=== PATIENT | female | born 1975 | race Caucasian/White ===

== ENCOUNTER 2016-05-23 11:19 | Emergency (ER) | payer SELFPAY ==
[~2016-05-23] VITALS: Ht 180.3 cm; Wt 99.5 kg
[~2016-05-23 11:19] MED LIST: HYDR-4246 PO; NAPR220T61 PO; PENI500T2 PO; VENL150T7 PO
[2016-05-23 11:24] VITALS: Ht 180.3 cm; Wt 99.5 kg
--- OUTSIDE RECORDS SUMMARY | 2016-05-23 11:26 | XMS REPORT | Continuity of Care Document ---
Author Author [facility] Organization [facility] Address Unknown Phone Unavailable Allergies Active Description Code Type Severity Reaction Onset Reported/Identified Relationship to Patient Clinical Status Yes No Known Drug Allergies No Known Drug Allergies Drug Allergy Unknown N/A 10/06/2009 Yes acetaminophen acetaminophen Drug Allergy Unknown HEP C 12/14/2013 Yes ibuprofen ibuprofen Drug Allergy Unknown HEP C 12/14/2013 Yes ketorolac ketorolac Drug Allergy Unknown MAKES ME SICK 12/14/2013 Medications Problems Procedures Results Test Result Range URINALYSIS, ROUTINE - 12/14/13 14:45 UA LEUKOCYTE ESTERASE DIPSTICK NEGATIVE NEGATIVE UA NITRITE DIPSTICK NEGATIVE NEGATIVE UA PROTEIN DIPSTICK NEGATIVE NEGATIVE UA GLUCOSE DIPSTICK NEGATIVE NEGATIVE UA KETONE DIPSTICK NEGATIVE NEGATIVE UA UROBILINOGEN DIPSTICK NORMAL NORMAL UA BILIRUBIN DIPSTICK NEGATIVE NEGATIVE UA BLOOD DIPSTICK NEGATIVE NEGATIVE UA COMMENT UA SPECIFIC GRAVITY 1.005 1.015-1.025 UR PH 7.0 5.0-7.0 UR TEST - 12/14/13 14:45 UR TEST NEGATIVE NEGATIVE Encounters ACCT No. Visit Date/Time Discharge Status Pt. Type Provider Facility Loc./Unit Complaint [id number] 12/14/2013 12:58:00 2013 15:35:00 DIS Emergency [facility], [place] [facility] W.EDS
--- OUTSIDE RECORDS SUMMARY | 2016-05-23 11:26 | XMS REPORT | Continuity of Care Document ---
Author Author [facility] Organization [facility] Address Unknown Phone Unavailable Care Team Providers Care Engineering Faculty Member Name Role Phone SO PUENTE MD Primary Care Physician [phone] Insurance Providers Guarantor JosueeldaCatherine Corby Address [address] [place] [address] Email DENIED NO TO PT PORT Payer [facility] Policy Number [id number] Subscriber's Name Catherine Bahena Relationship 18 Self Effective Date 14 Expiration Date 14 Advance Directives Directive Response Recorded Date/Time Advanced Directives Type None 05/05/16 3:47pm Chief Complaint and Reason for Visit Chief Complaint Toothache Reason for Visit [id number] Problems Active Problems Medical Problem Onset Date Status Acute pyelonephritis Unknown Acute Acute pyelonephritis Unknown Acute Dental abscess Unknown Acute Facial laceration Unknown Acute Minor head injury without loss of consciousness Unknown Acute Minor head injury without loss of consciousness Unknown Acute Pain, dental Unknown Acute Past Problems Medical Problem Onset Date Pain, dental Unknown Medications Current Home Medications Medication Dose Units Route Directions Days Qty Instructions Start Date Hydrocodone/Acetaminophen ([place] 5-325 Tablet) 5-325 Tablet 1 Tab Oral Every 4 Hours as needed for Pain 3 Days 18 Tablet 05/05/16 Naproxen Sodium (Aleve) 220 Mg Tablet 440 Mg Oral Twice Daily With Meals as needed for Pain 05/05/16 Penicillin V Potassium 500 Mg Tablet 1 Tab Oral Four Times Daily 10 Days 40 Tablet 05/05/16 Venlafaxine Hcl (Venlafaxine Hcl Er) 150 Mg Tab.er.24 300 Mg Oral Daily 05/05/16 Past Home Medications Medication Directions Ordered Status Acetaminophen (Tylenol) 500 Mg Tablet, 500 Mg Oral As Needed 04/26/11 Discontinued Acetaminophen/Dp-Hydram Hcl (Tylenol P.m. Ex-Str Caplet) 1 Tab Tablet, 4 Tab Oral Bedtime 04/26/11 Discontinued Alprazolam 1 Mg Tablet, 1 Mg Oral As Needed 09/21/10 Discontinued Amitriptyline Hcl 25 Mg Tablet, 25 Mg Oral Daily 05/04/08 Discontinued Carisoprodol (Soma) 350 Mg Tablet, 350 Mg Oral Three Times A Day 09/21/10 Discontinued Escitalopram Oxalate (Lexapro) 20 Mg Tablet, 10 Mg Oral Daily 09/21/10 Discontinued Escitalopram Oxalate (Lexapro) 20 Mg Tablet, Daily 11/19/09 Discontinued Escitalopram Oxalate (Lexapro) 20 Mg Tablet, 1 Tab Oral Daily 01/07/09 Discontinued Escitalopram Oxalate (Lexapro) 10 Mg Tablet, 05/04/08 Discontinued Ferrous Sulfate (Iron) 325 ( Capsule.sa, 325 ( Oral Twice A Day 05/04/08 Discontinued Gabapentin 600 Mg Tablet, 600 Mg Oral Four Times Daily 05/04/08 Discontinued Hydrocodone Bit/Acetaminophen (Hydrocodone-Apap 10-500 Tab) 1 Tab Tablet, 0.5 - 1 Tab Oral As Needed 09/21/10 Discontinued Hydrocodone Bit/Acetaminophen (Lortab 7.5) 1 Udtab Tablet, 1 Udtab Oral As Needed 05/04/08 Discontinued None , 10/28/09 Discontinued Vitamin , 1 Oral Daily 05/04/08 Discontinued Tramadol Hcl (Ultram) 50 Mg Tablet, 50 Mg Oral As Needed 05/04/08 Discontinued Zolpidem Tartrate (Ambien) 10 Mg Tablet, 10 Mg Oral Bedtime 09/24/10 Discontinued Zolpidem Tartrate (Ambien Neo) 10 Mg Tablet, 10 Mg Oral Bedtime 05/04/08 Discontinued Social History Social History Problem Response Recorded Date/Time Onset Date Status Hx Substance Use No 05/05/2016 3:47pm Not Applicable Not Applicable Hx Alcohol Use No 05/05/2016 3:47pm Not Applicable Not Applicable Tobacco Usage none 12/11/2013 12:01pm Not Applicable Not Applicable Query Response Start Date Stop Date Smoking Status Current every day smoker Hospital Discharge Instructions No hospital discharge instructions. Plan of Care Discharge Date 05/05/16 4:37pm Disposition 01 DISCHARGED HOME, SELF-CARE Condition at Discharge Improved Instructions/Education Provided ED Dental Follow-up Dental Caries (ED) Toothache (ED) Prescriptions See Medication Section Referrals SO PUENTE MD Order Date: 2 Days Address: [address] [id number] Note: Care Plan and Goals Physician Care Plan Problem: Dental Pain Goal: Follow up with primary care provider Instructions: Take medications and follow care plan as discussed/written Functional Status No functional status results. Allergies, Adverse Reactions, Alerts Allergen Type Severity Reaction Status Last Updated Codeine Adverse Reaction Unknown NAUSEA/VOMITING Active 05/05/16 Ketorolac Adverse Reaction Unknown SICK TO STOMACH Active 05/05/16 Immunizations Query Response on File Recorded Date/Time Hx Influenza Vaccination No 06/27/14 11:23pm Hx Pneumococcal Vaccination No 06/27/14 11:23pm Hx Tetanus, Diptheria, Pertussis N UNKNOWN 06/27/14 11:23pm Hx Influenza Vaccination No 06/27/14 11:23pm Hx Tetanus, Diptheria, Pertussis N UNKNOWN 06/27/14 11:23pm Influenza Vaccine Hx 12/201505/05/16 3:47pm Vital Signs Acute Vital Signs Vital Response Date/Time Temperature (Fahrenheit) 97.9 deg F (96.8 - 99.1) 05/05/2016 4:35pm Temperature (Calculated Celsius) 36.85200 degrees C (36.0 - 37.3) 05/05/2016 4:35pm Pulse Rate (adult) 90 bpm (60 - 100) 05/05/2016 4:35pm Respiratory Rate 16 breaths/min (10 - 20) 05/05/2016 4:35pm O2 Sat by Pulse Oximetry 99 % (90 - 100) 05/05/2016 4:35pm Blood Pressure 130/74 mm Hg 05/05/2016 4:35pm Height (Feet) 5 feet 05/05/2016 3:47pm Height (Inches) 10.00 inches 05/05/2016 3:47pm Weight (Kilograms) 101.700 kg 05/05/2016 3:47pm Body Mass Index (BMI) 32.0 05/05/2016 3:47pm Results No known relevant diagnostic tests, laboratory data and/or discharge summary. Procedures No known history of procedures. Encounters Encounter Location Arrival/Admit Date Discharge/Depart Date Attending Provider Departed Emergency Room [facility] 05/05/16 3:40pm 05/05/16 4: 37pm SONIDO MCKEON DO Recent Diagnosis
--- OUTSIDE RECORDS SUMMARY | 2016-05-23 11:26 | XMS REPORT | Continuity of Care Document ---
Author Author [facility] Organization [facility] Address Unknown Phone Unavailable Care Team Providers Care Customer Quality Specialist Name Role Phone SO PUENTE MD Primary Care Physician [phone] Insurance Providers Payer Name Policy Number Subscriber Name Relationship [facility] [employer] [facility] [id number] Catherine Bahena 18 Self Problems Medical Problems Problem Onset Date Status Pain, dental Unknown Active Acute pyelonephritis Unknown Active Acute pyelonephritis Unknown Active Minor head injury without loss of consciousness Unknown Active Facial laceration Unknown Active Minor head injury without loss of consciousness Unknown Active Medications Medication Dose Route Sig Days/Qty Instructions Order Date Discontinued Date Status Escitalopram Oxalate 05/04/08 01/07/09 Discontinued Zolpidem Tartrate 10 Mg PO BEDTIME 05/04/08 01/07/09 Discontinued Amitriptyline Hcl 25 Mg PO DAILY 05/04/08 01/07/09 Discontinued Ferrous Sulfate 325 ( PO TWICE A DAY 05/04/08 07/31/08 Discontinued Hydrocodone Bit/Acetaminophen 1 Udtab PO NEEDED 05/04/08 Discontinued [ Vitamin] 1 PO DAILY 05/04/08 07/31/08 Discontinued Tramadol Hcl 50 Mg PO NEEDED 05/04/08 07/31/08 Discontinued Gabapentin 600 Mg PO FOUR TIMES DAILY 05/04/08 07/31/08 Discontinued Escitalopram Oxalate 1 Tab PO DAILY 01/07/09 08/08/09 Discontinued [None] 10/28/09 08/06/10 Discontinued Escitalopram Oxalate DAILY 11/19/09 08/06/10 Discontinued Carisoprodol 350 Mg PO THREE TIMES A DAY 09/21/10 04/26/11 Discontinued Hydrocodone Bit/Acetaminophen 0.5 - 1 Tab PO NEEDED 09/21/1003/06 Discontinued Escitalopram Oxalate 10 Mg PO DAILY 09/21/10 04/26/11 Discontinued Alprazolam 1 Mg PO NEEDED 09/21/10 04/26/11 Discontinued Zolpidem Tartrate 10 Mg PO BEDTIME 09/24/10 04/26/11 Discontinued Acetaminophen 500 Mg PO NEEDED 04/26/11 05/09/11 Discontinued Acetaminophen/Dp-Hydram Hcl 4 Tab PO BEDTIME 04/26/11 05/09/11 Discontinued Desvenlafaxine Succinate Mg DAILY 11/11/13 Active Social History Social History Problem Response Recorded Date/Time Hx Substance Use No 04/14/2014 10:45pm Hx Alcohol Use No 04/14/2014 10:45pm Tobacco Usage none 12/11/2013 12:01pm Query Response Start Date Stop Date Smoking Status Current every day smoker Hospital Discharge Instructions No hospital discharge instructions. Plan of Care No plan of care. Functional Status Query Response Date Recorded Physical Hygiene Self April 14, 2014 10:45pm Disabilities None April 14, 2014 10:45pm Devices Used None April 14, 2014 10:45pm Dressing Self April 14, 2014 10:45pm Ambulation Self April 14, 2014 10:45pm Diet Self April 14, 2014 10:45pm Mental Status Alert Oriented April 15, 2014 1:02am Disabilities None April 14, 2014 10:45pm Devices Used None April 14, 2014 10:45pm Physical Hygiene Self April 14, 2014 10:45pm Dressing Self April 14, 2014 10:45pm Ambulation Self April 14, 2014 10:45pm Diet Self April 14, 2014 10:45pm Allergies, Adverse Reactions, Alerts Allergen Type Severity Reaction Status Last Updated TYLENOL #3 Adverse Reaction Unknown VOMITING Active 10/28/09 Immunizations Name Given Type Hx Influenza Vaccination No Historical Hx Pneumococcal Vaccination No Historical Hx Tetanus, Diptheria, Pertussis N UNKNOWN Historical Hx Influenza Vaccination No Historical Hx Tetanus, Diptheria, Pertussis N UNKNOWN Historical Vital Signs Acute Vital Signs Vital Response Date/Time Pulse Rate (adult) 80 bpm (60 - 100) Respiratory Rate 20 breaths/min (10 - 20) O2 Sat by Pulse Oximetry 99 % (90 - 100) Blood Pressure 127/80 mm Hg Height 5 ft 10 in Weight 161 lb Body Mass Index 23.0 kg/m^2 Results Test Source Date Result Interp. Ref. Range Comments Acetaminophen Level April 26, 2011 11:50pm 43 UG/ML H 10-30 TOXIC <4 HR POST INGESTION: >150 MG/L;TOXIC <12 HR POST INGESTION: >50 MG/L Alanine Aminotransferase (ALT/SGPT) December 11, 2013 11:43am 30 U/L N 9- 52 Albumin December 11, 2013 11:43am 4.2 G/DL N 3.5-5.0 Albumin/Globulin Ratio December 11, 2013 11:43am 1.2 RATIO N 1.1-2.2 Alcohol, Quantitative April 26, 2011 11:50pm <10 MG/DL - Alkaline Phosphatase December 11, 2013 11:43am 65 U/L N 38-126 Amylase Level December 11, 2013 11:43am 49 U/L N 30-110 Anion Gap December 11, 2013 11:43am 11 MEQ/L N 5-15 Aspartate Amino Transf (AST/SGOT) December 11, 2013 11:43am 21 U/L N 14- 36 BUN/Creatinine Ratio December 11, 2013 11:43am 10 RATIO N 6-26 Basophils # (Auto) December 11, 2013 11:43am 0.0 T/MM3 N 0-0.2 Basophils (%) (Auto) December 11, 2013 11:43am 0.2 % N 0-2 Blood Urea Nitrogen December 11, 2013 11:43am 8.0 MG/DL N 7-17 Calcium Level December 11, 2013 11:43am 9.8 MG/DL N 8.4-10.2 Calculated Osmolality December 11, 2013 11:43am 262 MOSM/KG N 261-280 Carbon Dioxide Level December 11, 2013 11:43am 26 MEQ/L N 22-30 Chloride Level December 11, 2013 11:43am 100 MEQ/L N 98-107 Conjugated Bilirubin April 26, 2011 11:50pm 0.00 MG/DL N 0.00-0.30 Creatinine December 11, 2013 11:43am 0.8 MG/DL N 0.7-1.2 Eosinophils # (Auto) December 11, 2013 11:43am 0.0 T/MM3 N 0-0.5 Eosinophils (%) (Auto) December 11, 2013 11:43am 0.0 % N 0-4 Gamma Glutamyl Transpeptidase February 20, 2011 12:25pm 25 U/L N 8-78 Globulin December 11, 2013 11:43am 3.4 G/DL N 2.4-3.6 Glucose Level December 11, 2013 11:43am 99 MG/DL N 65-110 Group A Streptococcus Screen August 08, 2009 9:57pm Positive - Has specimen been collected/obtained? Y Hematocrit December 11, 2013 11:43am 39.8 % N 36-46 Hemoglobin December 11, 2013 11:43am 13.3 GM/DL N 12-16 Lipase December 11, 2013 11:43am 57 U/L N 23-300 Lymphocytes # (Auto) December 11, 2013 11:43am 1.3 T/MM3 N 1-4.8 Lymphocytes # (Manual) August 08, 2009 10:15am 0.8 T/MM3 L 1-4.8 Lymphocytes % (Manual) August 08, 2009 10:15am 7.0 % L 23-45 Lymphocytes (%) (Auto) December 11, 2013 11:43am 8.8 % L 23-45 Mean Corpuscular Hemoglobin December 11, 2013 11:43am 29.8 UUG N 26-34 Mean Corpuscular Hemoglobin Concent December 11, 2013 11:43am 33.4 GM/DL N 31-37 Mean Corpuscular Volume December 11, 2013 11:43am 89.2 UM3 N 80-100 Mean Platelet Volume December 11, 2013 11:43am 10.5 UM3 N 9.4-12.4 Monocytes # (Auto) December 11, 2013 11:43am 1.2 T/MM3 H 0-0.8 Monocytes # (Manual) January 08, 2009 6:36pm 0.3 T/MM3 N 0-0.8 Monocytes % (Manual) January 08, 2009 6:36pm 5.0 % N 0-9.0 Monocytes (%) (Auto) December 11, 2013 11:43am 8.1 % N 0-9.0 Monoscreen August 08, 2009 10:15am Negative - Neutrophils # (Auto) December 11, 2013 11:43am 11.9 T/MM3 H 1.8-7.7 Neutrophils # (Manual) August 08, 2009 10:15am 10.5 T/MM3 H 1.8-7.7 Neutrophils % (Manual) August 08, 2009 10:15am 93.0 % H 33-66 Neutrophils (%) (Auto) December 11, 2013 11:43am 82.6 % H 33-66 Platelet Count December 11, 2013 11:43am 192 T/MM3 N 130-400 Potassium Level December 11, 2013 11:43am 3.7 MEQ/L N 3.6-5 Prealbumin September 21, 2010 8:00pm 26.2 MG/DL N 17.6-36.0 COMMENT may run on blood in lab.COMMENT may use on blood in lab. RDW Standard Deviation December 11, 2013 11:43am 44.2 FL N 36.9-50.2 Red Blood Count December 11, 2013 11:43am 4.46 M/MM3 N 4.00-5.20 Salicylates Level April 26, 2011 11:50pm 13.1 MG/DL N 2-20 Sodium Level December 11, 2013 11:43am 137 MEQ/L N 134-144 Thyroid Stimulating Hormone (TSH) February 20, 2011 12:25pm 3.02 MIU/L DN 0.47-4.68 Total Bilirubin December 11, 2013 11:43am 0.80 MG/DL N 0.20-1.30 Total Protein December 11, 2013 11:43am 7.6 G/DL N 6.3-8.2 Unconjugated Bilirubin April 26, 2011 11:50pm 0.00 MG/DL N 0.00-1.10 Urine Amphetamines Screen April 26, 2011 11:50pm Negative NG/ML - Urine Bacteria December 11, 2013 11:40am 4+ H - Has specimen been collected/obtained? Y Urine Barbiturates Screen April 26, 2011 11:50pm Negative NG/ML - Urine Benzodiazepines Screen April 26, 2011 11:50pm Negative NG/ML - Urine Bilirubin December 11, 2013 11:40am Negative - Has specimen been collected/obtained? Y Urine Blood December 11, 2013 11:40am 1+ H - Has specimen been collected /obtained? Y Urine Cocaine Screen April 26, 2011 11:50pm Negative NG/ML - Urine Collection Type December 11, 2013 11:40am Cleancatch-midstream - Has specimen been collected/obtained? Y Urine Color December 11, 2013 11:40am Yellow - Has specimen been collected/obtained? Y Urine Culture Indicated December 11, 2013 11:40am Cult reflexed &setup - Has specimen been collected/obtained? Y Urine Drug Screen Confirmation April 27, 2011 12:10am Sent out - Urine Glucose (UA) December 11, 2013 11:40am Negative - Has specimen been collected/obtained? Y Urine Ketones December 11, 2013 11:40am Negative - Has specimen been collected/obtained? Y Urine Leukocyte Esterase December 11, 2013 11:40am 1+ H - Has specimen been collected/obtained? Y Urine Methamphetamines Screen April 26, 2011 11:50pm Negative NG/ML - Urine Nitrite December 11, 2013 11:40am Positive H - Has specimen been collected/obtained? Y Urine Opiates Screen April 26, 2011 11:50pm Positive NG/ML - Urine Phencyclidine Screen April 26, 2011 11:50pm Negative NG/ML - Urine Test September 21, 2010 8:50pm Negative - Has specimen been collected/obtained? Y Urine Protein December 11, 2013 11:40am Trace H - Has specimen been collected/obtained? Y Urine RBC December 11, 2013 11:40am 0-1 /HPF - Has specimen been collected/obtained? Y Urine Specific [place] December 11, 2013 11:40am 1.015 - Has specimen been collected/obtained? Y Urine Squamous Epithelial Cells August 08, 2009 8:45am Moderate - Has specimen been collected/obtained? Y Urine Trichomonas August 08, 2009 8:45am Present - Has specimen been collected/obtained? Y Urine Tricyclic Antidepressants April 26, 2011 11:50pm Negative NG/ML - Urine Turbidity December 11, 2013 11:40am Clear - Has specimen been collected/obtained? Y Urine Urobilinogen December 11, 2013 11:40am 2.0 EU/DL - Has specimen been collected/obtained? Y Urine WBC December 11, 2013 11:40am 5-10 /HPF H - Has specimen been collected/obtained? Y Urine pH December 11, 2013 11:40am 7.0 - Has specimen been collected/ obtained? Y White Blood Count December 11, 2013 11:43am 14.4 T/MM3 H 4.5-11.0 Chemistry Specimen Hemolysis December 11, 2013 11:43am < 15 0-25 0-25 : No Hemolysis.26-70: Slight Hemolysis - can falsely elevate K and Urine Protein. 71-285: Moderate Hemolysis - can falsely elevate K, Troponin I, CA 19-9, PTH, CSF GLucose, and Urine Protein, and can falsely decrease Phenytoin. 286-999: Gross Hemolysis - can falsely elevate K, Troponin I, CA 19-9, PTH, CSF Glucose, and Urine Protine, and can falsely decrease Phenytoin. Recommend specimen recollection. Glucometer May 04, 2008 10:08pm 92 mg/dL - Lab Scanned Report May 02, 2011 10:33am [facility] [id number] - Urine Methadone Screen April 26, 2011 11:50pm Negative NG/ML - Urine Cannabinoids Screen April 26, 2011 11:50pm Positive NG/ML - Turbidity December 11, 2013 11:43am < 20 0-20 Glomerular Filtration Rate Calc December 11, 2013 11:43am 81 - Immature Granulocyte # (Auto) December 11, 2013 11:43am 0.04 T/MM3 H 0.00 -0.03 Immature Granulocyte % (Auto) December 11, 2013 11:43am 0.3 % N 0.0-0.5 Venous Blood Lactate December 11, 2013 12:14pm 1.0 MMOL/L N 0.6-2.2 Procalcitonin December 11, 2013 12:14pm 0.31 NG/ML - PCT </=0.5 ng/mL - sepsis not likely;PCT >0.5 and </=2 ng/mL - sepsis possible; PCT >2 ng/mL - sepsis likely; PCT >/=10 ng/mL - systemic inflammatory response - sepsis or septic shock highly indicated. Icterus Index December 11, 2013 11:43am < 2 0-7 Urine Acetaminophen Screen April 26, 2011 11:50pm Positive NG/ML - Urine Microscopic Not Indicated April 26, 2011 11:50pm Not indicated - Has specimen been collected/obtained? Y Blood Culture Blood December 11, 2013 12:15pm NO GROWTH AFTER 5 DAYS Urine Culture Urine, Clean Catch-Midstream December 11, 2013 12:34pm Escherichia Coli Procedures No known history of procedures. Encounters Encounter Location Date/Time Departed Emergency Room [facility] 04/14/14 9:59pm Recent Diagnosis
--- OUTSIDE RECORDS SUMMARY | 2016-05-23 11:28 | XMS REPORT | Continuity of Care Document ---
Author Author Stanislav [facility] Organization [facility] Address Unknown Phone Unavailable Care Team Providers Care Whey Department Operator Name Role Phone SO PUENTE MD Primary Care Physician [phone] Insurance Providers Payer Name Policy Number Subscriber Name Relationship [facility] [place] [employer] [facility] [id number] Catherine Bahena 19 Self Advance Directives Directive Response Recorded Date/Time Advanced Directives Type None 12/11/13 10:40am Problems Medical Problems Problem Onset Date Status Pain, dental Unknown Active Acute pyelonephritis Unknown Active Medications Medication Dose Route Sig [...] Discontinued Desvenlafaxine Succinate Mg DAILY 11/11/13 Active Ciprofloxacin HCl 500 Mg PO TWICE A DAY 14 Qty 12/11/13 Active Hydrocodone/Acetaminophen 1-2 Tab PO Q6H/0300,0900,1500,2100 PRN pyelonephritis 20 Qty 12/11/13 Active Social History Social History Problem Response Recorded Date/Time Smoking Status Current every day smoker 12/11/2013 10:46am When did patient START smoking? AGE 16 12/11/2013 10:46am Hx Substance Use No 12/11/2013 10:46am Hx Alcohol Use No 12/11/2013 10:46am Query Response Start Date Stop Date Smoking Status Current every day smoker Hospital Discharge Instructions No hospital discharge instructions. Plan of Care No plan of care. Functional Status Query Response Date Recorded Physical Hygiene Self December 11, 2013 10:46am Disabilities None December 11, 2013 10:46am Devices Used None December 11, 2013 10:46am Dressing Self December 11, 2013 10:46am Ambulation Self December 11, 2013 10:46am Diet Self December 11, 2013 10:46am Mental Status Alert Oriented December 11, 2013 10:46am Disabilities None December 11, 2013 10:46am Devices Used None December 11, 2013 10:46am Physical Hygiene Self December 11, 2013 10:46am Dressing Self December 11, 2013 10:46am Ambulation Self December 11, 2013 10:46am Diet Self December 11, 2013 10:46am Allergies, Adverse Reactions, Alerts Allergen Type Severity Reaction Status Last Updated Ketorolac Allergy Mild MAKES HER ILL Active 12/11/13 TYLENOL #3 Adverse Reaction Unknown VOMITING Active 10/28/09 Immunizations Name Given Type Hx Influenza Vaccination No Historical Hx Pneumococcal Vaccination No Historical Hx Tetanus, Diptheria, Pertussis N UNKNOWN Historical Hx Influenza Vaccination No Historical Hx Tetanus, Diptheria, Pertussis N UNKNOWN Historical Vital Signs Acute Vital Signs Vital Response Date/Time Temperature (Fahrenheit) 102.3 deg F (96.8 - 99.1) Temperature (Calculated Celsius) 39.22159 degrees C (36.0 - 37.3) Pulse Rate (adult) 93 bpm (60 - 100) Respiratory Rate 20 breaths/min (10 - 20) O2 Sat by Pulse Oximetry 100 % (90 - 100) Blood Pressure 128/87 mm Hg Height 5 ft 11 in Weight 149 lb Body Mass Index 20.0 kg/m^2 Results Test Source Date Result Interp. Ref. Range Comments Procalcitonin December 11, 2013 12:14pm 0.31 NG/ML - PCT </=0.5 ng/mL - sepsis not likely;PCT >0.5 and </=2 ng/mL - sepsis possible; PCT >2 ng/mL - sepsis likely; PCT >/=10 ng/mL - systemic inflammatory response - sepsis or septic shock highly indicated. Venous Blood Lactate December 11, 2013 12:14pm 1.0 MMOL/L N 0.6-2.2 Acetaminophen Level April 26, 2011 11:50pm 43 [...] 11, 2013 11:43am 26 MEQ/L N 22-30 Chemistry Specimen Hemolysis December 11, 2013 11:43am [...] can falsely decrease Phenytoin. Recommend specimen recollection. Chloride Level December 11, 2013 11:43am 100 [...] 11, 2013 11:43am 3.4 G/DL N 2.4-3.6 Glomerular Filtration Rate Calc December 11, 2013 11:43am 81 - Glucometer May 04, 2008 10:08pm 92 mg/dL - Glucose Level December 11, 2013 11:43am 99 MG/DL N 65-110 Group A Streptococcus Screen August 08, 2009 9:57pm Positive - Has specimen been collected/obtained? Y Hematocrit December 11, 2013 11:43am 39.8 % N 36-46 Hemoglobin December 11, 2013 11:43am 13.3 GM/DL N 12-16 Icterus Index December 11, 2013 11:43am < 2 0-7 Immature Granulocyte # (Auto) December 11, 2013 11:43am 0.04 T/MM3 H 0.00 -0.03 Immature Granulocyte % (Auto) December 11, 2013 11:43am 0.3 % N 0.0-0.5 Lab Scanned Report May 02, 2011 10:33am [facility]FER[facility] [id number] - Lipase December 11, 2013 11:43am 57 U/L [...] 11, 2013 11:43am 7.6 G/DL N 6.3-8.2 Turbidity December 11, 2013 11:43am < 20 0-20 Unconjugated Bilirubin April 26, 2011 11:50pm 0.00 MG/DL N 0.00-1.10 Urine Acetaminophen Screen April 26, 2011 11:50pm Positive NG/ML - Urine Amphetamines Screen April 26, 2011 11:50pm [...] Has specimen been collected /obtained? Y Urine Cannabinoids Screen April 26, 2011 11:50pm Positive NG/ML - Urine Cocaine Screen April 26, 2011 11:50pm [...] - Has specimen been collected/obtained? Y Urine Methadone Screen April 26, 2011 11:50pm Negative NG/ML - Urine Methamphetamines Screen April 26, 2011 11:50pm Negative NG/ML - Urine Microscopic Not Indicated April 26, 2011 11:50pm Not indicated - Has specimen been collected/obtained? Y Urine Nitrite December 11, 2013 11:40am Positive [...] Has specimen been collected/obtained? Y Urine Specific [place] December 11, 2013 11:40am 1.015 - Has [...] 11, 2013 11:43am 14.4 T/MM3 H 4.5-11.0 Procedures Procedure Status Date Provider(s) N BLOCK INJ TRIGEMINAL completed 11/11/13 NATALIE WALTERS MD Encounters Encounter Location Date/Time Registered Emergency Room [facility] 12/11/13 9:52am Departed Emergency Room [facility] 11/11/13 8:23pm Recent Diagnosis
--- OUTSIDE RECORDS SUMMARY | 2016-05-23 11:28 | XMS REPORT | Continuity of Care Document ---
Author Author [facility] Organization [facility] Address Unknown Phone Unavailable Care Team Providers Care Steam Blocker Name Role Phone SO PUENTE MD Primary Care Physician [phone] Insurance Providers Payer Name Policy Number Subscriber Name Relationship [facility] [employer] [facility] [id number] Catherine Bahena 19 Self Advance Directives Directive Response Recorded Date/Time Advanced Directives Type None 11/11/13 8:40pm Problems Medical Problems Problem Onset Date Status Pain, dental Unknown Active Medications Medication Dose Route Sig [...] Discontinued Desvenlafaxine Succinate Mg DAILY 11/11/13 Active Amox Tr/Potassium Clavulanate Mg TWICE A DAY 11/11/13 Active Hydrocodone/Ibuprofen 1-2 Mg EVERY SIX HOURS 11/11/13 Active Social History Social History Problem Response Recorded Date/Time Smoking Status Current every day smoker 11/11/2013 8:40pm When did patient START smoking? AGE 16 11/11/2013 8:40pm Chewing Tobacco Status No 11/11/2013 8:40pm Hx Substance Use No 11/11/2013 8:40pm Hx Alcohol Use No 11/11/2013 8:40pm Query Response Start Date Stop Date Smoking Status Current every day smoker Hospital Discharge Instructions No hospital discharge instructions. Plan of Care No plan of care. Functional Status Query Response Date Recorded Physical Hygiene Self November 11, 2013 8:40pm Disabilities None November 11, 2013 8:40pm Devices Used None November 11, 2013 8:40pm Dressing Self November 11, 2013 8:40pm Ambulation Self November 11, 2013 8:40pm Diet Self November 11, 2013 8:40pm Mental Status Alert November 11, 2013 8:40pm Disabilities None November 11, 2013 8:40pm Devices Used None November 11, 2013 8:40pm Physical Hygiene Self November 11, 2013 8:40pm Dressing Self November 11, 2013 8:40pm Ambulation Self November 11, 2013 8:40pm Diet Self November 11, 2013 8:40pm Allergies, Adverse Reactions, Alerts Allergen Type Severity Reaction Status Last Updated Ketorolac Allergy Mild MAKES HER ILL Active 11/11/13 TYLENOL #3 Adverse Reaction Unknown VOMITING Active 10/28/09 Immunizations Name Given Type Hx Influenza Vaccination No Historical Hx Pneumococcal Vaccination No Historical Hx Tetanus, Diptheria, Pertussis N UNKNOWN Historical Hx Influenza Vaccination No Historical Hx Tetanus, Diptheria, Pertussis N UNKNOWN Historical Vital Signs Acute Vital Signs Vital Response Date/Time Temperature (Fahrenheit) 97.4 deg F (96.8 - 99.1) Temperature (Calculated Celsius) 36.93196 degrees C (36.0 - 37.3) Pulse Rate (adult) 80 bpm (60 - 100) Respiratory Rate 20 breaths/min (10 - 20) O2 Sat by Pulse Oximetry 99 % (90 - 100) Height 5 ft 9 in Weight 154 lb Body Mass Index 22.0 kg/m^2 Results Test Source Date Result Interp. Ref. Range Comments Acetaminophen Level April 26, 2011 11:50pm 43 UG/ML H 10-30 TOXIC <4 HR POST INGESTION: >150 MG/L;TOXIC <12 HR POST INGESTION: >50 MG/L Alanine Aminotransferase (ALT/SGPT) April 26, 2011 11:50pm 11 U/L N 9- 52 Albumin April 26, 2011 11:50pm 4.3 G/DL N 3.5-5.0 Albumin/Globulin Ratio April 26, 2011 11:50pm 1.5 RATIO N 1.1-2.2 Alcohol, Quantitative April 26, 2011 11:50pm <10 MG/DL - Alkaline Phosphatase April 26, 2011 11:50pm 50 U/L N 38-126 Amylase Level August 08, 2009 10:15am 49 U/L N 30-110 Anion Gap April 26, 2011 11:50pm 15 MEQ/L N 5-15 Aspartate Amino Transf (AST/SGOT) April 26, 2011 11:50pm 19 U/L N 14-36 BUN/Creatinine Ratio April 26, 2011 11:50pm 14 RATIO N 6-26 Basophils # (Auto) April 26, 2011 11:50pm 0.0 T/MM3 N 0-0.2 Basophils (%) (Auto) April 26, 2011 11:50pm 0.3 % N 0-2 Blood Urea Nitrogen April 26, 2011 11:50pm 10.0 MG/DL N 7-17 Calcium Level April 26, 2011 11:50pm 9.0 MG/DL N 8.4-10.2 Calculated Osmolality April 26, 2011 11:50pm 283 MOSM/KG H 261-280 Carbon Dioxide Level April 26, 2011 11:50pm 24 MEQ/L N 22-30 Chloride Level April 26, 2011 11:50pm 109 MEQ/L H 98-107 Conjugated Bilirubin April 26, 2011 11:50pm 0.00 MG/DL N 0.00-0.30 Creatinine April 26, 2011 11:50pm 0.7 MG/DL N 0.7-1.2 Eosinophils # (Auto) April 26, 2011 11:50pm 0.1 T/MM3 N 0-0.5 Eosinophils (%) (Auto) April 26, 2011 11:50pm 1.0 % N 0-4 Gamma Glutamyl Transpeptidase February 20, 2011 12:25pm 25 U/L N 8-78 Globulin April 26, 2011 11:50pm 2.9 G/DL N 2.4-3.6 Glucose Level April 26, 2011 11:50pm 90 MG/DL N 65-110 Group A Streptococcus Screen August 08, 2009 9:57pm Positive - Has specimen been collected/obtained? Y Hematocrit April 26, 2011 11:50pm 37.4 % N 36-46 Hemoglobin April 26, 2011 11:50pm 12.6 GM/DL N 12-16 Human Chorionic Gonadotropin, Qual August 08, 2009 10:15am Negative - Lipase August 08, 2009 10:15am 56 U/L N 23-300 Lymphocytes # (Auto) April 26, 2011 11:50pm 3.1 T/MM3 N 1-4.8 Lymphocytes # (Manual) August 08, 2009 10:15am 0.8 T/MM3 L 1-4.8 Lymphocytes % (Manual) August 08, 2009 10:15am 7.0 % L 23-45 Lymphocytes (%) (Auto) April 26, 2011 11:50pm 51.5 % H 23-45 Mean Corpuscular Hemoglobin April 26, 2011 11:50pm 30.4 UUG N 26-34 Mean Corpuscular Hemoglobin Concent April 26, 2011 11:50pm 33.7 GM/DL N 31-37 Mean Corpuscular Volume April 26, 2011 11:50pm 90.3 UM3 N 80-100 Mean Platelet Volume April 26, 2011 11:50pm 10.4 UM3 N 9.4-12.4 Monocytes # (Auto) April 26, 2011 11:50pm 0.5 T/MM3 N 0-0.8 Monocytes # (Manual) January 08, 2009 6:36pm 0.3 T/MM3 N 0-0.8 Monocytes % (Manual) January 08, 2009 6:36pm 5.0 % N 0-9.0 Monocytes (%) (Auto) April 26, 2011 11:50pm 9.0 % N 0-9.0 Monoscreen August 08, 2009 10:15am Negative - Neutrophils # (Auto) April 26, 2011 11:50pm 2.3 T/MM3 N 1.8-7.7 Neutrophils # (Manual) August 08, 2009 10:15am 10.5 T/MM3 H 1.8-7.7 Neutrophils % (Manual) August 08, 2009 10:15am 93.0 % H 33-66 Neutrophils (%) (Auto) April 26, 2011 11:50pm 37.9 % N 33-66 Platelet Count April 26, 2011 11:50pm 282 T/MM3 N 130-400 Potassium Level April 26, 2011 11:50pm 2.8 MEQ/L PL 3.6-5 Prealbumin September 21, 2010 8:00pm 26.2 MG/DL N 17.6-36.0 COMMENT may run on blood in lab.COMMENT may use on blood in lab. RDW Standard Deviation April 26, 2011 11:50pm 45.4 FL N 36.9-50.2 Red Blood Count April 26, 2011 11:50pm 4.14 M/MM3 N 4.00-5.20 Salicylates Level April 26, 2011 11:50pm 13.1 MG/DL N 2-20 Sodium Level April 26, 2011 11:50pm 148 MEQ/L H 134-144 Thyroid Stimulating Hormone (TSH) February 20, 2011 12:25pm 3.02 MIU/L DN 0.47-4.68 Total Bilirubin April 26, 2011 11:50pm 0.30 MG/DL N 0.20-1.30 Total Protein April 26, 2011 11:50pm 7.2 G/DL N 6.3-8.2 Unconjugated Bilirubin April 26, 2011 11:50pm 0.00 MG/DL N 0.00-1.10 Urine Amphetamines Screen April 26, 2011 11:50pm Negative NG/ML - Urine Bacteria August 08, 2009 8:45am Trace H - Has specimen been collected/obtained? Y Urine Barbiturates Screen April 26, 2011 11:50pm Negative NG/ML - Urine Benzodiazepines Screen April 26, 2011 11:50pm Negative NG/ML - Urine Bilirubin April 26, 2011 11:50pm Negative - Has specimen been collected/obtained? Y Urine Blood April 26, 2011 11:50pm Negative - Has specimen been collected/obtained? Y Urine Cocaine Screen April 26, 2011 11:50pm Negative NG/ML - Urine Collection Type April 26, 2011 11:50pm Voided - Has specimen been collected/obtained? Y Urine Color April 26, 2011 11:50pm Yellow - Has specimen been collected/obtained? Y Urine Culture Indicated August 08, 2009 8:45am Cult not set up - Has specimen been collected/obtained? Y Urine Drug Screen Confirmation April 27, 2011 12:10am Sent out - Urine Glucose (UA) April 26, 2011 11:50pm Negative - Has specimen been collected/obtained? Y Urine Ketones April 26, 2011 11:50pm Negative - Has specimen been collected/obtained? Y Urine Leukocyte Esterase April 26, 2011 11:50pm Negative - Has specimen been collected/obtained? Y Urine Methamphetamines Screen April 26, 2011 11:50pm Negative NG/ML - Urine Nitrite April 26, 2011 11:50pm Negative - Has specimen been collected/obtained? Y Urine Opiates Screen April 26, 2011 11:50pm Positive NG/ML - Urine Phencyclidine Screen April 26, 2011 11:50pm Negative NG/ML - Urine Test September 21, 2010 8:50pm Negative - Has specimen been collected/obtained? Y Urine Protein April 26, 2011 11:50pm Trace H - Has specimen been collected/obtained? Y Urine RBC August 08, 2009 8:45am 0-1 /HPF - Has specimen been collected /obtained? Y Urine Specific [place] April 26, 2011 11:50pm 1.025 - Has specimen been collected/obtained? Y Urine Squamous Epithelial Cells August 08, 2009 8:45am Moderate - Has specimen been collected/obtained? Y Urine Trichomonas August 08, 2009 8:45am Present - Has specimen been collected/obtained? Y Urine Tricyclic Antidepressants April 26, 2011 11:50pm Negative NG/ML - Urine Turbidity April 26, 2011 11:50pm Clear - Has specimen been collected/obtained? Y Urine Urobilinogen April 26, 2011 11:50pm Normal EU/DL - Has specimen been collected/obtained? Y Urine WBC August 08, 2009 8:45am 5-10 /HPF H - Has specimen been collected/obtained? Y Urine pH April 26, 2011 11:50pm 5.0 - Has specimen been collected/ obtained? Y White Blood Count April 26, 2011 11:50pm 6.0 T/MM3 N 4.5-11.0 Glucometer May 04, 2008 10:08pm 92 mg/dL - Lab Scanned Report May 02, 2011 10:33am [facility] [id number] - Urine Methadone Screen April 26, 2011 11:50pm Negative NG/ML - Urine Cannabinoids Screen April 26, 2011 11:50pm Positive NG/ML - Glomerular Filtration Rate Calc April 26, 2011 11:50pm 96 - Immature Granulocyte # (Auto) April 26, 2011 11:50pm 0.02 T/MM3 N 0.00- 0.03 Immature Granulocyte % (Auto) April 26, 2011 11:50pm 0.3 % N 0.0-0.5 Urine Acetaminophen Screen April 26, 2011 11:50pm Positive NG/ML - Urine Microscopic Not Indicated April 26, 2011 11:50pm Not indicated - Has specimen been collected/obtained? Y Procedures No known history of procedures. Encounters Encounter Location Date/Time Departed Emergency Room [facility] 11/11/13 8:23pm Recent Diagnosis
--- NOTE | 2016-05-23 11:44 | NUR ---
DR DR MCKEON IN ROOM.
--- NOTE | 2016-05-23 11:55 | NUR ---
INFORMATION CONTACTED [facility] TO INQUIRE REGARDING PT'S APPOINTMENT AT [facility]. PT JUST PREVIOUSLY CALLED FROM ROOM. PER AUTOMATIC SPOOLER OPERATOR, PT DID NOT HAVE APPOINTMENT SCHEDULED SHE REPORTED, SO AUTOMATIC SPOOLER OPERATOR JUST GOT HER SCHEDULED FOR 06/10/16 AT 1430 WITH TODAY'S PHONE CALL.
[2016-05-23] MEDS ORDERED: HYDR-4246 PO (11:57)
[2016-05-23] MEDS ORDERED: PENI500T2 PO (11:57)
--- NOTE | 2016-05-23 11:58 | ERPDOC ---
Departure Disposition Decision Date: May 23, 2016 Disposition Decision Time: 11:56 Disposition: 01 DISCHARGED HOME, SELF-CARE Impression Impression Impression: Primary Impression: Pain, dental Severity: Mild Condition: Improved Seen By: Physician only Referrals: SO PUENTE MD (PCP) [facility] 2 Days Problems/Meds/Labs Reviewed?: Yes Medications reviewed and manag: Yes Follow up care ordered?: Yes Mental Status: Alert, Oriented Scripts Penicillin V Potassium (Penicillin V Potassium) 500 Mg Tablet 1 TAB PO QID for 10 Days, #40 TAB 0 Refills Prov: SONIDO MCKEON DO 05/23/16 Hydrocodone/Acetaminophen ([place] 5-325 Tablet) 5-325 Tablet 1 TAB PO Q6HR Y for PAIN for 2 Days, #8 TAB 0 Refills Prov: SONIDO MCKEON DO 05/23/16 HPI - EENT General General Chief Complaint: Toothache Stated Complaint: TOOTHACHE Time Seen by Provider: 11:19 Source: patient Exam Limitations: no limitations HPI - EENT General Initial Comments 40-year-old female presents to the emergency department with a chief complaint of dental pain. Patient is well-known to the emergency department. Patient notes a moderate dull aching pain without radiation to her left upper posterior tooth. Patient claims that she has an appointment with [facility] dental services on 06/09/2016. Patient has not followed up with dental services since her prior visit on May 05, 2016. He notes that the pain increases with chewing and improves with rest and analgesia. No other complaints or associated symptoms. She was at home when her symptoms began. Symptoms have been persisted in nature since onset. Occurred At: home Onset/Timing: Gradual Allergies: Coded Allergies: tramadol (Verified Adverse Reaction, Mild, "MAKES ME SICK", 05/23/16) codeine (Verified Adverse Reaction, Unknown, NAUSEA/VOMITING, 05/23/16) ketorolac (Verified Adverse Reaction, Unknown, SICK TO STOMACH, 05/23/16) Past History Past Medical History Metabolic: hypertension ENMT: dental problems Musculoskeletal: back pain Psychological: depression, drug abuse Surgical History General: tonsils Reproductive/: tubal ligation Family History Family History: Negative Vaccines Hx Influenza Vaccination: No Hx Pneumococcal Vaccination: No Hx Tetanus, Diptheria, Pertuss: No (UNKNOWN) Social History Smoking Status: Current every day smoker # of Packs/Tins per Day: 0.5 Substance Use Type: does not use Alcohol Intake: none Review of Systems Constitutional Constitutional: DENIES: chills, fever Eyes General: DENIES: erythema, exudate Lids/Accessories: DENIES: erythema, swelling Vision: DENIES: acuity, blurring ENMT Ears: DENIES: drainage, erythema Hearing: DENIES: hearing loss Balance: DENIES: ataxia, falling to one side Sinuses: DENIES: congestion, pain Nose: DENIES: nosebleeds, pain Mouth/Throat: DENIES: painful swallowing, sore throat Teeth: missing teeth, other (diffuse dental caries.), pain Jaw: DENIES: pain Cardiovascular Cardiac: DENIES: chest pain, dyspnea on exertion Rhythm/Rate: DENIES: irregular beat, palpitations Vascular: DENIES: pedal edema, unilateral swelling Pulmonary Respiratory: DENIES: cough, dyspnea, pleuritic chest pain, sputum GI Upper Abdomen: DENIES: nausea, pain, vomiting Lower Abdomen: DENIES: diarrhea, pain General: DENIES: dysuria, pain Musculoskeletal General: DENIES: pain, tenderness Integumentary Skin: DENIES: itching, rash Neurological General: DENIES: headache, numbness Psychiatric Psychiatric: DENIES: emotional instability, suicidal ideation/attempt Endocrine Endocrine: DENIES: polydipsia, polyphagia Hematologic/Lymphatic Hematologic/Lymphatic: DENIES: frequent nosebleeds, lymphadenopathy Allergic/Immunological Allergic/Immunoligical: DENIES: allergic reactions, hives Physical Exam General General Nourishment: well nourished, well developed, appears stated age, no acute distress, adult General Body Habitus: well groomed Vitals and Pain First Documented Vital Signs Date Time Temp Pulse Resp B/P Pulse Ox O2 Delivery O2 Flow Rate FiO2 05/23/16 11:24 98.2 90 16 143/82 98 Room Air Weight: Kilograms: 99.500 Height (feet): 5 Height (inches): 11.00 Triage Pain Scale: RN VS reviewed by Provider: Yes Normal Exams: Head: Normocephalic w/o trauma Eyes: Pupils are PERRLA w/ EOMI, No scleral icterus, irritation, or foreign bodies noted ENMT: No facial trauma, nasal exudates, pharyngeal erythema, or exudates are noted Neck: Full range of motion, without adenopathy, JVD, bruits or thyromegaly Chest/Resp: Clear all parker, with good airflow, and symmetry bilaterally CV: Regular rate and rhythm, without murmur or gallop, Pulses 2+ all extremities, capillary refill, <2 seconds all ext., no pedal edema noted Abdomen: Bowel sounds positive, soft, non-tender, non-distended, no hepatosplenomegaly, masses or bruits noted Lymphatic: No lymphadenopathy, or lymphedema noted Musculoskeletal: No tenderness, or deformity noted, good range of motion, all extremities Integumentary: No rashes, hives, or bruising noted, hair and nails, without abnormality Neurologic: Patient is alert, and oriented, cranial nerves, motor/sensory/ cerebellar, exams w/o gross deficits, to observation Psychiatric: Patient exhibits, appropriate attention, emotion and affect ENMT (brief) Comments Oral - #14 is tender to percussion. Tooth is eroded with dental caries. No exposed dentin or pulp. No sign of abscess. Voice is normal. Handling secretions without difficulty. No tonsillar exudate. Uvula midline. No pharyngeal erythema. No elevation of tongue. No facial swelling/cellulitis. Differential Diagnoses Considering: Abscess, Other (dental pain/dental abscess/dental caries) Procedures Dental Block Procedure Dental Block : Pain Scale Pre: 8 Location: infra-orbital Anesthetic: 0.5% Bupivicaine Volume of Anesthetic (cc's): 2 Pain Scale Post: 0 Comments Patient tolerated procedure well and without difficulty. Progress Results/Orders Orders Procedure Category Date Status Time Bupivacaine/Epi PHA 05/23/16 Complete *Dental* (Marcaine 12:00 Medications Current ED Medications Bupivacaine HCl/ Epinephrine Bitart (Marcaine *Dental*) 1.8 ml O ONCE INJ Last administered on 05/23/16t 12:02; Start 05/23/16 at 12:00; Stop 05/23/16 at 12:01; Status DC Progress Progress Long discussion was had with the patient regarding multiple visits to the emergency department for dental pain. She is politely counseled that this is not an appropriate use of the emergency department resources. Patient has not followed up with her dentist as instructed since her last visit on May 05, 2016. Patient states that she has a dentist appointment on 06/09/2016. Patient gives permission to contact her dentist. Patient is not on the dental schedule with her dentist and has in fact been a no-show for other dental appointment during the month of April 2016. Patient also [facility] stating that there is concern for potential drug- seeking behavior as well. Long discussion is had with the patient regarding this. Patient is offered a dental block which she accepts. Dental block resolves the patient's pain. Patient tolerated procedure well and without difficulty. Patient is informed that this is the last time the emergency department will be able to fill a narcotic prescription for her with a dental pain. I have told her that I will give her the benefit of the doubt this final time during her ED stay but with a very limited prescription due to the above factors. She is only given a prescription as she states that OTC medications are not controlling her pain. She verbalizes agreement and understanding of this. She is given a prescription of [place] 5 mg tablets #8. She is given penicillin VK. She is to follow up as instructed. She is to return to the emergency Department if her condition worsens or changes in any manner. Patient verbalizes agreement and understanding with the current plan of management. She is discharged home in improved condition. She is counseled regarding the importance of dental follow up. SONIDO MCKEON DO May 23, 2016 11:58
[2016-05-23] MEDS ORDERED: BUPIVACAINE 0.5%/EPI 1:200K *DENTAL* 1.8ml SYRINGE INJ ONE (12:00)
--- NOTE | 2016-05-23 12:02 | NUR ---
DR DR MCKEON AT BEDSIDE FOR INJECTION. EDUCATION REGARDING THE MEDICATION PROVIDED VERBALLY BY DR MCKEON.
--- OUTSIDE RECORDS SUMMARY | 2016-05-23 12:15 | XMS REPORT | Continuity of Care Document ---
Author Author [facility] Organization [facility] Address Unknown Phone Unavailable Allergies Active Description [...] Status Pt. Type Provider Facility Loc./Unit Complaint [id number] 12/14/2013 12:58:00 2013 15:35:00 DIS Emergency [facility], [facility] W.EDS
--- OUTSIDE RECORDS SUMMARY | 2016-05-23 12:15 | XMS REPORT | Continuity of Care Document ---
Author Author [facility] Organization [facility] Address Unknown Phone Unavailable Care Team Providers Care Strap Buckler Machine Name Role Phone SO PUENTE MD Primary Care Physician [phone] Insurance Providers Payer Name Policy Number Subscriber Name Relationship [facility] Responsible [place] [facility] [id number] Catherine Bahena 19 Self Problems Medical Problems [...] Has specimen been collected/obtained? Y Urine Specific [place] December 11, 2013 11:40am 1.015 - Has [...] Report May 02, 2011 10:33am [facility] [id number] - Urine Methadone Screen April 26, 2011 [...] Encounters Encounter Location Date/Time Departed Emergency Room [facility] 04/14/14 9:59pm Recent Diagnosis
--- OUTSIDE RECORDS SUMMARY | 2016-05-23 12:16 | XMS REPORT | Continuity of Care Document ---
Author Author [facility] Organization [facility] Address Unknown Phone Unavailable Care Team Providers Care Metalworking Specialist Name Role Phone SO PUENTE MD Primary Care Physician [phone] Insurance Providers Payer Name Policy Number Subscriber Name Relationship [facility] [id number] Catherine Bahena 19 Self Advance Directives Directive [...] F (96.8 - 99.1) Temperature (Calculated Celsius) [phone] degrees C (36.0 - 37.3) Pulse Rate [...] Report May 02, 2011 10:33am REFERENCE LAB [id number] - Lipase December 11, 2013 11:43am 58 [...] Has specimen been collected/obtained? Y Urine Specific [place] December 11, 2013 11:40am 1.015 - Has [...] Encounters Encounter Location Date/Time Registered Emergency Room [facility] 12/11/13 9:52am Departed Emergency Room [facility] 11/11/13 8:23pm Recent Diagnosis
[2016-05-23 12:17] VITALS: BP 128/82; PULSE 87; RESP 16; TEMP 98.7; O2SAT 99
--- OUTSIDE RECORDS SUMMARY | 2016-05-23 12:17 | XMS REPORT | Continuity of Care Document ---
Author Author [facility] Organization [facility] Address Unknown Phone Unavailable Care Team Providers Care Application Trainer Name Role Phone SO PUENTE MD Primary Care Physician [phone] Insurance Providers Payer Name Policy Number Subscriber Name Relationship [facility] [employer] [facility] [id number] Catherine Bahena 19 Self Advance Directives Directive [...] F (96.8 - 99.1) Temperature (Calculated Celsius) 36.20976 degrees C (36.0 - 37.3) Pulse Rate [...] specimen been collected /obtained? Y Urine Specific [place] April 26, 2011 11:50pm 1.025 - Has [...] Report May 02, 2011 10:33am [facility]FER[facility] [id number] - Urine Methadone Screen April 26, 2011 [...] Encounters Encounter Location Date/Time Departed Emergency Room [facility] 11/11/13 8:23pm Recent Diagnosis
== END 2016-05-23 12:19 | disposition home or self-care (01) ==
LOC: ED 11:19
DX: K02.9 Dental caries, unspecified (principal)